=== PATIENT | female | born 1975 ===

== ENCOUNTER 2023-07-21 08:15 | Inpatient (IN) | payer OTHER ==
[~2023-07-21] VITALS: Ht 162.6 cm; Wt 108.9 kg
[2023-07-21] MEDS ORDERED: LOSARTAN POTASS50 MG PO (10:32)
[2023-07-21 10:46] LABS: URINE APPEARANCE Cloudy; URINE BILIRRUBIN Negative (NEGATIVE); URINE BLOOD Negative; URINE COLOR Yellow; URINE GLUCOSE Negative (NEGATIVE); URINE LEUKOCYTE Trace; URINE NITRATE Negative; URINE PROTEIN Negative (NEGATIVE)
[2023-07-21 10:51] LABS: URINE BACTERIA 59.2 uL (0.0-1933); URINE EPITHELIAL CELLS 23.4 uL (0.0-38.8); URINE RBC 17.5 uL (0.0-20.8); URINE WBC 16.3 uL (0.0-23.2)
[2023-07-21 11:08] LABS: HEMATOCRIT 37.7 % (36.0-45.00); HEMOGLOBIN 12.5 g/dL (12.0-15.00); MEAN CELL VOLUME 85.3 fL (80.00-100.00); MEAN CORPUSCULAR HEMOGLOBIN 28.3 pg (27.00-32.0); MEAN CORPUSCULAR HGB CONC 33.1 g/dl (32.0-36.0); PLATELET COUNT 257 K/uL (150-450); RED BLOOD COUNT 4.42 M/uL (4.00-6.00); RED CELL DISTRIBUTION WIDTH 14.2 % (11.5-14.5)
[2023-07-21 11:50] LABS: ALBUMIN 3.7 gm/dL (3.4-5.0); BILIRUBIN TOTAL 0.36 mg/dL (0.3-1.2); CALCIUM 9.5 mg/dL (8.5-10.1); CREATININE SERUM 0.73 mg/dL (0.55-1.02); GFR 85.09; GLOBULINA 4.2 G/DL (2.4-3.5); POTASSIUM 4.87 mEq/L (3.5-5.1); TOTAL PROTEIN 7.9 gm/dL (6.4-8.2); TSH 4.29 uIU/mL (0.358-3.74)
[2023-07-21 12:05] LABS: INR < 0.93; PROTHROMBIN TIME 9.8 SECONDS (9.0-11.5)
[2023-07-31] MEDS ORDERED: LIDOCAINE HCL 1%/Epi 20ML VIAL IJ ONE (13:04)
[2023-07-31] MEDS ORDERED: CEFOXITIN SODIUM 2,000 MG VIAL IV ONE ×2 (13:04→14:00)
[2023-07-31] MEDS ORDERED: BUPIVACAINE HCL/PF 0.5% 30ML ML ONE (13:04)
[2023-07-31] MEDS ORDERED: POVIDONE-IODINE 118 ML BOTT TOP ONE ×2 (13:05→14:00)
[2023-07-31] MEDS ORDERED: MEPERIDINE HCL/PF 50 MG/ML VIAL IV SCH (14:58)
[2023-07-31] MEDS ORDERED: PROMETHAZINE HCL 25 MG/ML AMPUL IV SCH (14:58)
[2023-07-31] MEDS ORDERED: RINGERS SOLUTION,LACTATED 1,000 ML IV SCH (15:00)
[2023-07-31] MEDS ORDERED: ONDANSETRON HCL 2 MG/ML VIAL ONE (16:26)
[2023-07-31] MEDS ORDERED: SIMETHICONE 125 MG CAPSULE PO SCH (17:00)
[2023-07-31 20:02] LABS: HEMATOCRIT 37.3 % (36.0-45.00); HEMOGLOBIN 12.4 g/dL (12.0-15.00); MEAN CELL VOLUME 84.5 fL (80.00-100.00); MEAN CORPUSCULAR HGB CONC 33.2 g/dl (32.0-36.0); PLATELET COUNT 227 K/uL (150-450); RED BLOOD COUNT 4.42 M/uL (4.00-6.00); RED CELL DISTRIBUTION WIDTH 13.9 % (11.5-14.5)
[2023-08-01] MEDS ORDERED: LOSARTAN POTASSIUM 50 MG TABLET PO SCH (09:00)
[2023-08-01] MEDS ORDERED: NAPR500T14 PO (09:13)
[2023-08-01] MEDS ORDERED: Tylenol #3 PO (09:13)
[2023-08-01] MEDS ORDERED: ACETAMINOPHEN WITH CODEINE 1 UDTAB TABLET PO ONE (09:30)
== END 2023-08-01 09:47 | disposition home or self-care (01) | DRG 743 ==
LOC: SURH 07-31 08:15 → O/R 07-31 10:30 → SURH 07-31 13:30 → OB/GYN 07-31 15:30
PROVIDERS: ADMIT Obstetrics & Gynecology; ATTEND Obstetrics & Gynecology
PROC: 0UT20ZZ Resection of Bilateral Ovaries, Open Approach (ICD-10-PCS; 2023-07-31)
PROC: 0UT70ZZ Resection of Bilateral Fallopian Tubes, Open Approach (ICD-10-PCS; 2023-07-31)
PROC: 0JQC0ZZ Repair Pelvic Region Subcutaneous Tissue and Fascia, Open Approach (ICD-10-PCS; 2023-07-31)
PROC: 0USG0ZZ Reposition Vagina, Open Approach (ICD-10-PCS; 2023-07-31)
PROC: 0TJB8ZZ Inspection of Bladder, Via Natural or Artificial Opening Endoscopic (ICD-10-PCS; 2023-07-31)
PROC: 0UT97ZZ Resection of Uterus, Via Natural or Artificial Opening (ICD-10-PCS; principal; 2023-07-31 13:30)
DX: D25.1 Intramural leiomyoma of uterus (principal); N93.8 Other specified abnormal uterine and vaginal bleeding; N81.11 Cystocele, midline; N92.1 Excessive and frequent menstruation with irregular cycle; Z20.822 Contact with and (suspected) exposure to COVID-19